=== PATIENT | male | born 1945 | race Caucasian/White ===

== ENCOUNTER 2017-06-11 13:07 | Outpatient (RCR) | payer MEDICARE, OTHER ==
[~2017-06-11 13:07] MED LIST: B12 PO; CIPR-225 PO; DUTA0.5C14 PO; HYDR-3874 PO; LISI10TA2 PO; OMEP10SU PO; PHEN-640 PO; ROPI1TAB2 PO; TAMS0.4C2 PO; TIMO5DRO5 OP; VIT1TABL83 PO
== END 2017-06-14 | disposition home or self-care (01) ==
LOC: ONC 13:07
PROVIDERS: ATTEND Radiology Radiation Oncology
DX: C61 Malignant neoplasm of prostate (principal)
CPT/HCPCS: 99214

== ENCOUNTER 2017-12-30 10:22 | Outpatient (RCR) | payer MEDICARE, OTHER ==
[~2017-12-30 10:22] MED LIST changes: +HYDR-3870 PO; -HYDR-3874 PO; -OMEP10SU PO; +OMEP10SU2 PO
== END 2018-01-19 | disposition home or self-care (01) ==
LOC: ONC 10:22
PROVIDERS: ATTEND Radiology Radiation Oncology
DX: Z51.0 Encounter for antineoplastic radiation therapy (principal); C61 Malignant neoplasm of prostate
CPT/HCPCS: 77300; 77301; 77334; 77336; 77338; 77385

== ENCOUNTER 2018-01-27 15:20 | Outpatient (RCR) | payer MEDICARE, OTHER ==
[~2018-01-27 15:20] MED LIST changes: -DUTA0.5C14 PO; +DUTA0.5C16 PO
== END 2018-04-27 | disposition home or self-care (01) ==
LOC: ONC 15:20
PROVIDERS: ATTEND Radiology Radiation Oncology
DX: C61 Malignant neoplasm of prostate (principal)
CPT/HCPCS: 99213